=== PATIENT | female | born 1975 | race Caucasian/White ===

== ENCOUNTER 2018-07-10 08:58 | Emergency (ER) | payer MEDICAID ==
[2018-07-10] MEDS ORDERED: ACETAMINOPHEN 325MG TABLET PO STA (09:36)
[2018-07-10] MEDS ORDERED: BACITRACIN ZINC OINT UDPKT TOP ONE (09:45)
[2018-07-10 11:08] VITALS: BP 140/93
== END 2018-07-10 11:09 | disposition home or self-care (01) ==
LOC: ER 09:41
DX: S90.111A Contusion of right great toe without damage to nail, initial encounter (principal); L03.031 Cellulitis of right toe; Z88.6 Allergy status to analgesic agent; W22.8XXA Striking against or struck by other objects, initial encounter; Y93.89 Activity, other specified; Y92.89 Other specified places as the place of occurrence of the external cause; Y99.8 Other external cause status
CPT/HCPCS: 73660; 81025; 99283

== ENCOUNTER 2018-07-24 01:27 | Emergency (ER) | payer MEDICAID ==
[~2018-07-24] VITALS: Ht 157.5 cm; Wt 113.0 kg
[2018-07-24] MEDS ORDERED: ASPIRIN 81MG TABLET PO ONE (03:00)
[2018-07-24 03:05] LABS: BASOPHILS % 0.2 % (0.0-2.0); HEMATOCRIT. 36.1 % (36.0-48.0); LYMPHOCYTES % 36.7 % (20.0-50.0); MEAN CORPUSCULAR HEMOGLOBIN 26.1 pg (28.0-32.0); MEAN CORPUSCULAR VOLUME 78.4 fL (81.0-99.0); MONOCYTES % 5.8 % (2.0-8.0); NEUTROPHILS % 53.3 % (40.0-76.0); PLATELET 325 x1000/uL (130-400); RED BLOOD CELL COUNT 4.61 mill/uL (4.2-5.4); RED CELL DISTRIBUTION WIDTH 15.4 % (11.6-14.6)
[2018-07-24 03:07] LABS: CHLORIDE 107 mEq/L (98-107)
[2018-07-24 03:09] LABS: CLARITY URINE CLEAR (CLEAR); COLOR URINE YELLOW (YELLOW); KETONES URINE NEGATIVE (NEGATIVE); LEUKOCYTE ESTERASE URINE NEGATIVE (NEGATIVE); NITRITE URINE NEGATIVE (NEGATIVE); OCCULT BLOOD URINE TRACE (NEGATIVE); PH URINE 5.5 (4.5-8.0); PROTEIN URINE NEGATIVE (NEGATIVE); SPECIFIC GRAVITY URINE 1.005 (1.005-1.030); UROBILINOGEN URINE 0.2 E.U./dL (0.2-1.0)
[2018-07-24 06:00] VITALS: BP 129/83
== END 2018-07-24 06:10 | disposition home or self-care (01) ==
LOC: ER 01:27
DX: R07.81 Pleurodynia (principal); I10 Essential (primary) hypertension; Z98.890 Other specified postprocedural states; Z88.6 Allergy status to analgesic agent
CPT/HCPCS: 36415; 71045; 81025; 84484; 85379; 93005; 99284